=== PATIENT | female | born 1995 | race African-American/Black ===

== ENCOUNTER 2016-11-17 18:34 | Emergency (ER) | payer OTHER ==
[2016-11-17 18:46] LABS: BASOPHIL# 0.1 X10e3 (0-0.3); BASOPHIL% 0.6 % (0-2.5); EOSINOPHIL# 0.2 X10e3 (0-0.7); EOSINOPHIL% 1.3 % (0.0-7.0); HEMATOCRIT 41.1 % (35.0-45.0); HEMOGLOBIN 13.7 gm/dL (12.0-16.0); LYMPHOCYTE# 2.8 X10e3 (1.0-3.5); LYMPHOCYTE% 21.2 % (17.0-45.0); MEAN CELL VOLUME 89.7 FL (83-96); MEAN CORPUSCULAR HEMOGLOBIN 29.8 PG (28-34); MEAN CORPUSCULAR HGB CONC 33.2 g/dL (30-36); MEAN PLATELET VOLUME 7.2 FL (6.5-11.5); MONOCYTE# 1.2 X10e3 (0-1.0); MONOCYTE% 9.2 % (3.0-12.0); NEUTROPHIL% 67.7 % (40-75); PLATELET COUNT 410 X10e3 (140-420); RED BLOOD COUNT 4.59 X10e (3.90-5.30); WHITE BLOOD COUNT 13.3 X10e3 (4.0-10.5)
[2016-11-17 18:49] LABS: DIFF IND NO
== END 2016-11-17 19:00 | disposition home or self-care (01) ==
LOC: CFTX 18:34
PROVIDERS: Physician Assistant Medical
DX: N92.6 Irregular menstruation, unspecified (principal); F17.210 Nicotine dependence, cigarettes, uncomplicated
CPT/HCPCS: 36415; 84703; 85025; 99283

== ENCOUNTER 2017-01-24 18:04 | Emergency (ER) | payer OTHER ==
--- NOTE | ~2017-01-24 | CR63 ---
[facility] A Service of [facility] & [facility] RADIOLOGY TEXT RESULTS PATIENT: KAYCE SÁNCHEZ LOCATION: CFTX : [birth year] UNIT #: [id number] AGE: [address]: Dariel Sellers SEX: F ORDER DR: [id number] [facility] [address] [place], [place] [address] [id number] MR#: [id number] Acc #: [id number] NAME: KAYCE SÁNCHEZ : 1995 SEX: F STUDY DATE/TIME: 01/24/2017 20:07 UNIT: [facility] ROOM: STUDY DESCRIPTION: CR Chest 2 View Attending Physician: Dariel Sellers P.A.-C. Ordering Physician: Dariel Sellers P.A.-C. Primary Care Physician: Primary Care Physician No MEDICAL IMAGING REPORT This report is preliminary unless electronic signature is present EXAM Two views chest, 01/24/17 HISTORY Cough, congestion, short of air, vomiting began 3 days ago. Smoker 5 years. FINDINGS PA and lateral radiographs of the chest are presented. Comparison 09/19/16. Heart and mediastinum normal in size and contour. Lungs well inflated. No evidence of acute infectious or inflammatory disease, pleural effusion or pneumothorax. No suspicious nodule. Bony structures show mild levoscoliosis thoracic spine. Stable. No acute bony abnormality. Dictated by... Dariel Sullivan M.D. THIS IS AN ELECTRONICALLY VERIFIED REPORT Dariel Sullivan M.D. at 01/27/2017 8:26 AM ANGY/leonard TD: 01/24/2017 23:54 JOB #: [id number] MEDICAL IMAGING REPORT Page 1 of 1 COPY
== END 2017-01-24 21:10 | disposition home or self-care (01) ==
LOC: CFTX 18:04 → CED 18:04 → CFTX 19:18
DX: J20.9 Acute bronchitis, unspecified (principal); F17.210 Nicotine dependence, cigarettes, uncomplicated; Z91.040 Latex allergy status
CPT/HCPCS: 71020; 84703; 94640; 99283